=== PATIENT | male | born 1985 | race Caucasian/White ===

== ENCOUNTER 2018-09-17 17:02 | Emergency (ER) | payer BC ==
--- NOTE | 2018-09-17 17:21 | EDPHY ---
H & P Time Seen by Provider: 09/17/18 17:03 HPI/ROS: Chief complaint. Limited trauma activation HPI. Patient is a 33-year-old male here by EMS after snowboard injury at [facility]. Apparently the patient was snowboarding without wearing a helmet. He fell forward struck his face on the snow. Apparent loss of consciousness. 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 His complaints are pain to his nose and right wrist pain. Previous fracture to the right wrist. Right handed. Denies neck or back pain, chest pain, shortness of breath, abdominal pain, injury to left arm or legs. He does not have repetitive questioning here ROS 10 systems were reviewed and negative with the exception of the elements mentioned in the history of present illness Past Medical/Surgical History: Asthma as child Social History: , daily smoker, no alcohol. Visiting from [place] Smoking Status: Current every day smoker Physical Exam: General Appearance: Alert well-developed male mild distress vital signs are stable Eyes: Pupils equal and round no pallor or injection. ENT, no hemotympanum or Stauffer sign. No oral pharyngeal or dental trauma. Abrasion to the nose without significant swelling or deformity. No septal hematoma. Tenderness over the bridge of his nose. No other facial tenderness Respiratory: There are no retractions, lungs are clear to auscultation. Cardiovascular: Regular rate and rhythm. Gastrointestinal: Abdomen is soft and nontender, no masses, bowel sounds normal. Neurological: Awake and alert, sensory and motor exams grossly normal. Skin: Warm and dry, no rashes. Musculoskeletal: Neck is supple nontender. Extremities pain to the right wrist with mild swelling and pain on range of motion. No significant deformity Psychiatric: Patient is oriented X 3, there is no agitation. Constitutional: Initial Vital Signs Temperature (C) 37.2 C 09/17/18 17:08 Heart Rate 82 09/17/18 17:08 Respiratory Rate 18 09/17/18 17:08 Blood Pressure 171/91 H 09/17/18 17:08 O2 Sat (%) 94 09/17/18 17:08 O2 Delivery Mode Room Air Allergies/Adverse Reactions: No Known Allergies Allergy (Unverified 09/17/18 17:15) Home Medications: Medication Instructions Recorded oxyCODONE/APAP 5/325 [Percocet 1 tab PO Q4-6PRN PRN #14 tab 09/17/18 5/325] Medical Decision Making - Diagnostics Imaging Results: Imaging Impressions Head CT 09/17/18 17:30 Impression: 1. There is no acute intracranial abnormality identified on this unenhanced CT evaluation. 2. Bilateral nasal fractures. 3. Chronic paranasal sinus mucosal thickening, greatest at the level of the maxillary sinuses, with no acute air-fluid level. There also appears to be a subtle (age-indeterminate) buckling deformity along the anterior left maxillary sinus wall. If there is further clinical concern regarding the patient's symptoms, MR imaging is suggested, if not otherwise contraindicated. Findings were discussed with TAMIA DOHERTY MD at 18:04, on 09/17/2018. Wrist X-Ray 09/17/18 17:30 Impression: Oblique intra-articular nondisplaced distal right radius fracture. Findings and recommendations discussed with Emergency Department physician, TAMIA DOHERTY at 18:47 hour, 09/17/2018. Final report concurs with initial preliminary interpretation. Noncontrast CT head shows no evidence of skull fracture intracranial bleeding. He has bilateral nasal fracture minimally displaced. Mild cortical buckling of the left anterior maxillary sinus. X-ray right wrist shows intra-articular nondisplaced distal radius fracture Procedures: IV saline ED Course/Re-evaluation: Re-evaluation 6:10 p.m. Patient is stable. He is now oriented to person place and time. He and I discussed imaging study results, treatment plan including criteria for return and importance of follow-up and further evaluation when he returns home to [place]. He expresses understanding and agreement. He will be provided with CD with his images of head and wrist. Re-evaluation and I palpated the left anterior maxillary sinus patient has no tenderness at this point Sugar-tong splint placed right radius. Re-evaluation post splint placement shows good anatomic position and distal motor vascular sensitivity to be intact The patient was to be provided with a prescription for Percocet for his broken wrist and broken nose. However his tells the nurse that patient is recovering opioid patient. The patient will not be given a prescription for Percocet and I had a discussion with patient and his about use of Tylenol and ibuprofen for pain Differential Diagnosis: Patient has a concussion. I considered skull fracture and intracranial bleeding. He has bilateral minimally displaced nasal fracture. He has a nondisplaced right wrist fracture. He had repetitive questioning and has now resolved and he is oriented x3 - Data Points Medications Given: Discontinued Medications Ibuprofen (Motrin) 800 mg PO EDNOW ONE Stop: 09/17/18 18:36 Last Admin: 09/17/18 18:36 Dose: 800 mg Oxycodone/Acetaminophen (Percocet 5/325) 1 tab PO EDNOW ONE Stop: 09/17/18 18:19 Last Admin: 09/17/18 18:35 Dose: Not Given Departure - Departure Disposition: Home, Routine, Self-Care Clinical Impression: Right wrist fracture Qualifiers: Encounter type: initial encounter Fracture type: closed Qualified Code(s): S62.101A - Fracture of unspecified carpal bone, right wrist, initial encounter for closed fracture Concussion Qualifiers: Encounter type: initial encounter Loss of consciousness presence/duration: with LOC of 30 min or less Qualified Code(s): S06.0X1A - Concussion with loss of consciousness of 30 minutes or less, initial encounter Nasal fracture Qualifiers: Encounter type: initial encounter Fracture type: closed Qualified Code(s): S02.2XXA - Fracture of nasal bones, initial encounter for closed fracture Condition: Good Instructions: Nasal Fracture (ED), Wrist Fracture in Adults (ED), Concussion ( ED) Additional Instructions: Percocet as needed for pain. Percocet can cause constipation Ice to wrist and nose next 24-48 hours. Splint and sling on until see orthopedist. Call orthopedist tomorrow in [place] to arrange follow-up. You have a nasal fracture and please follow-up with Ear Nose Throat physician in [place] upon return home Because of concussion no activity that may result in head injury for 1 week Return for worsening symptoms. Referrals: Patient,NotPresent [Primary Care Provider] - As per Instructions Prescriptions: oxyCODONE/APAP 5/325 [Percocet 5/325] 1 tab PO Q4-6PRN PRN #14 tab PRN Reason: Pain, Moderate
[2018-09-17] MEDS: OXYCODONE/APAP 5/325 TAB PO ONE ×2 (18:25→18:35)
[2018-09-17] MEDS ORDERED: IBUPROFEN 800 MG TAB PO ONE ×2 (18:33→18:35)
[2018-09-17 19:05] VITALS: BP 148/80
== END 2018-09-17 19:07 | disposition home or self-care (01) ==
PROC: 2W3EX1Z Immobilization of Right Hand using Splint (ICD-10-PCS; principal; 2018-09-17)
DX: S62.101A Fracture of unspecified carpal bone, right wrist, initial encounter for closed fracture (principal); S06.0X1A Concussion with loss of consciousness of 30 minutes or less, initial encounter; S02.2XXA Fracture of nasal bones, initial encounter for closed fracture; Y93.23 Activity, snow (alpine) (downhill) skiing, snowboarding, sledding, tobogganing and snow tubing; V00.311A Fall from snowboard, initial encounter; Y92.828 Other wilderness area as the place of occurrence of the external cause
CPT/HCPCS: A4565